=== PATIENT | female | born 1955 | race Caucasian/White ===

== ENCOUNTER 2021-07-31 21:23 | Inpatient (IN) | payer OTHER ==
[~2021-07-31] VITALS: Ht 175.3 cm; Wt 80.7 kg
[2021-07-31] MEDS ORDERED: HALOPERIDOL LACTATE 5 MG/ML INJ VIAL IM ONE (22:00)
[2021-07-31] MEDS ORDERED: SODIUM CHLORIDE 0.9% 2,000 ML IV ONE (22:30)
[2021-07-31 23:28] LABS: Basophils # (auto) 0.1 10 ^3/uL (0-0.2); Basophils % (auto) 0.5 % (0.0-2.0); Eosinophils # (auto) 0 10 ^3/uL (0-0.8); Eosinophils % (auto) 0.1 % (0.0-7.0); Hemoglobin 14.2 g/dL (12.2-16.2); Lymphocytes # (auto) 1.9 10 ^3/uL (0.4-5.4); Lymphocytes % (auto) 9.9 % (10.0-50.0); Mean Corpuscular Hemoglobin 29.5 pg (28.0-32.0); Mean Corpuscular Hgb Conc. 33.1 g/dL (32.0-36.0); Mean Corpuscular Volume 89.2 fL (80.0-100.0); Monocytes # (auto) 0.9 10 ^3/uL (0-1.3); Monocytes % (auto) 4.6 % (0.0-12.0); Neutrophils # (auto) 16.1 10 ^3/uL (1.6-8.6); Neutrophils % (auto) 84.9 % (37.0-80.0); Red Blood Cells 4.83 10^6/uL (4.0-5.20)
[2021-07-31 23:49] LABS: Albumin 3.3 g/dL (3.4-5.0); Calcium 9.1 mg/dL (8.5-10.1); INR 1.13 (0.9-1.15); Magnesium 2.8 mg/dL (1.6-2.6); Partial Thromboplastin Time 25.5 sec (23.6-33.0); Potassium 3.8 mmol/L (3.5-5.1)
[2021-07-31 23:51] LABS: Lactic Acid w/Reflex 2.2 mmol/L (0.4-2.0)
[2021-08-01 00:01] LABS: BUN/Creatinine Ratio 31.6; Bilirubin, Total 0.7 mg/dL (0.2-1.0); Total Protein 7.2 g/dL (6.4-8.2)
[2021-08-01 01:16] LABS: Urine Bacteria NONE SEEN /hpf (None Seen); Urine Blood Negative /uL (Negative); Urine Mucus FEW (None Seen); Urine WBC 2 /hpf (0 - 5)
[2021-08-01 01:32] LABS: Amphetamine Screen, Urine NEGATIVE (NEGATIVE); Barbiturate Scree,Urine NEGATIVE (NEGATIVE); Benzodiazephine Screen, Urine NEGATIVE (NEGATIVE); Cannabinoid Screen, Urine NEGATIVE (NEGATIVE); Cocaine Screen, Urine NEGATIVE (NEGATIVE); Opiate Scree,Urine NEGATIVE (NEGATIVE); Phencyclidine Screen, Urine NEGATIVE (NEGATIVE)
[2021-08-01] MEDS ORDERED: NITROGLYCERIN 0.4 MG SL TAB SL PRN (03:00)
[2021-08-01] MEDS ORDERED: ONDANSETRON HCL 4 MG/2 ML VIAL IV PRN (03:00)
[2021-08-01] MEDS ORDERED: MORPHINE SULFATE INJECTION 2 MG/ML SYRG IV PRN (03:00)
[2021-08-01] MEDS ORDERED: SOD CHL 0.45% 1,000 ML IV SCH (03:00)
[2021-08-01] MEDS ORDERED: ACETAMINOPHEN 325 MG TAB PO PRN (03:00)
[2021-08-01] MEDS ORDERED: cefTRIAXone 1GM/50ML D5W 50 ML IV ONE (03:00)
[2021-08-01 04:52] LABS: Calcium 8.9 mg/dL (8.5-10.1); Potassium 3.7 mmol/L (3.5-5.1)
[2021-08-01 04:54] LABS: BUN/Creatinine Ratio 38.6
[2021-08-01] MEDS ORDERED: ENOXAPARIN SOD 100 MG/1 ML SYRINGE SC ONE (06:15)
[2021-08-01] MEDS: SOD CHL 0.45% 1,000 ML IV SCH ×2 (07:03→23:36)
[2021-08-01] MEDS: risperiDONE 1 MG TAB PO SCH (10:00)
[2021-08-01] MEDS: ASPirin 81 mg TAB PO SCH (10:00)
[2021-08-01] MEDS ORDERED: PANTOPRAZOLE 40 MG TAB PO SCH (10:00)
[2021-08-01 13:00] VITALS: BP 115/80
[2021-08-01 17:10] VITALS: BP 95/76
[2021-08-01 20:00] VITALS: BP 101/74
[2021-08-01 22:00] VITALS: BP 101/74
[2021-08-01] MEDS: MIRTAZAPINE 30 MG TAB PO SCH (22:00)
[2021-08-02 05:27] VITALS: BP 110/79
[2021-08-02 06:10] LABS: Basophils # (auto) 0.1 10 ^3/uL (0-0.2); Basophils % (auto) 0.6 % (0.0-2.0); Eosinophils # (auto) 0.1 10 ^3/uL (0-0.8); Eosinophils % (auto) 0.6 % (0.0-7.0); Hematocrit 36.4 % (36.0-46.0); Hemoglobin 12.1 g/dL (12.2-16.2); Lymphocytes # (auto) 2.5 10 ^3/uL (0.4-5.4); Lymphocytes % (auto) 25.8 % (10.0-50.0); Mean Corpuscular Hemoglobin 30.1 pg (28.0-32.0); Mean Corpuscular Hgb Conc. 33.2 g/dL (32.0-36.0); Mean Corpuscular Volume 90.7 fL (80.0-100.0); Monocytes # (auto) 0.6 10 ^3/uL (0-1.3); Monocytes % (auto) 6.6 % (0.0-12.0); Neutrophils # (auto) 6.4 10 ^3/uL (1.6-8.6); Neutrophils % (auto) 66.4 % (37.0-80.0); Red Blood Cells 4.01 10^6/uL (4.0-5.20); White Blood Cell 9.7 10^3/uL (4.4-10.8)
[2021-08-02 06:18] LABS: Calcium 8.6 mg/dL (8.5-10.1); Potassium 3.7 mmol/L (3.5-5.1)
[2021-08-02 06:20] LABS: BUN/Creatinine Ratio 41.5
[2021-08-02] MEDS: cefTRIAXone 1GM/50ML D5W 50 ML IV SCH (08:22)
[2021-08-02] MEDS: D5W/SOD CHL 0.45% 1,000 ML IV SCH ×2 (08:30→21:50)
[2021-08-02 09:23] VITALS: BP 106/74
[2021-08-02] MEDS: ASPirin 81 mg TAB PO SCH (10:02)
[2021-08-02] MEDS: ENOXAPARIN SOD 40 MG/0.4 ML SYRINGE SC SCH (10:02)
[2021-08-02] MEDS: risperiDONE 1 MG TAB PO SCH (10:02)
[2021-08-02 13:00] VITALS: BP 109/72
[2021-08-02] MEDS ORDERED: HYDROcodone-ACET 5/325MG TAB PO PRN (15:00)
[2021-08-02 16:54] VITALS: BP 110/66
[2021-08-02] MEDS ORDERED: LEVE100S4 PO (19:05)
[2021-08-02 20:00] VITALS: BP 163/110
[2021-08-02 21:44] VITALS: BP 163/110
[2021-08-02] MEDS: MIRTAZAPINE 30 MG TAB PO SCH (22:02)
[2021-08-03] VITALS (7 sets, daily range): BP systolic 86–159; BP diastolic 58–114
[2021-08-03] MEDS: D5W/SOD CHL 0.45% 1,000 ML IV SCH ×3 (00:30→17:07)
[2021-08-03] MEDS: ASPirin 81 mg TAB PO SCH (09:04)
[2021-08-03] MEDS: risperiDONE 1 MG TAB PO SCH (09:04)
[2021-08-03] MEDS: ENOXAPARIN SOD 40 MG/0.4 ML SYRINGE SC SCH (09:05)
[2021-08-03 09:21] LABS: Basophils # (auto) 0.1 10 ^3/uL (0-0.2); Basophils % (auto) 0.3 % (0.0-2.0); Eosinophils # (auto) 0.3 10 ^3/uL (0-0.8); Hematocrit 43.9 % (36.0-46.0); Hemoglobin 14.7 g/dL (12.2-16.2); Lymphocytes # (auto) 2.6 10 ^3/uL (0.4-5.4); Mean Corpuscular Hemoglobin 30.3 pg (28.0-32.0); Mean Corpuscular Hgb Conc. 33.5 g/dL (32.0-36.0); Mean Corpuscular Volume 90.3 fL (80.0-100.0); Monocytes % (auto) 5.8 % (0.0-12.0); Neutrophils # (auto) 12.4 10 ^3/uL (1.6-8.6); Neutrophils % (auto) 75.9 % (37.0-80.0); Nucleated Red Blood Cells % 0.1 %; Red Blood Cells 4.86 10^6/uL (4.0-5.20); Red Cell Distribution Width 14.9 % (11.8-14.3); White Blood Cell 16.3 10^3/uL (4.4-10.8)
[2021-08-03 09:54] LABS: Calcium 8.7 mg/dL (8.5-10.1); Potassium 3.3 mmol/L (3.5-5.1)
[2021-08-03 10:00] LABS: BUN/Creatinine Ratio 20.9; Bilirubin, Total 0.6 mg/dL (0.2-1.0); Total Protein 6.7 g/dL (6.4-8.2)
[2021-08-03] MEDS: cefTRIAXone 1GM/50ML D5W 50 ML IV SCH (10:34)
[2021-08-03] MEDS ORDERED: POTASSIUM EFFERVESENT TAB 25 MEQ GT ONE (15:00)
[2021-08-03] MEDS: CARVEDILOL 3.125 MG TAB PO SCH (23:28)
[2021-08-03] MEDS: SACUBITRIL-VALSARTAN 24mg/26mg TAB PO SCH (23:29)
[2021-08-03] MEDS: MIRTAZAPINE 30 MG TAB PO SCH (23:29)
[2021-08-04] MEDS: D5W/SOD CHL 0.45% 1,000 ML IV SCH ×5 (00:30→20:33)
[2021-08-04 05:00] VITALS: BP 103/75
[2021-08-04 07:49] LABS: Basophils # (auto) 0.1 10 ^3/uL (0-0.2); Basophils % (auto) 0.7 % (0.0-2.0); Eosinophils # (auto) 0.6 10 ^3/uL (0-0.8); Hematocrit 39.6 % (36.0-46.0); Hemoglobin 13.2 g/dL (12.2-16.2); Lymphocytes # (auto) 2.9 10 ^3/uL (0.4-5.4); Lymphocytes % (auto) 22.4 % (10.0-50.0); Mean Corpuscular Hemoglobin 30.1 pg (28.0-32.0); Mean Corpuscular Hgb Conc. 33.4 g/dL (32.0-36.0); Monocytes # (auto) 0.9 10 ^3/uL (0-1.3); Monocytes % (auto) 6.9 % (0.0-12.0); Neutrophils # (auto) 8.3 10 ^3/uL (1.6-8.6); White Blood Cell 12.8 10^3/uL (4.4-10.8)
[2021-08-04] MEDS: ASPirin 81 mg TAB PO SCH (08:58)
[2021-08-04] MEDS: SACUBITRIL-VALSARTAN 24mg/26mg TAB PO SCH ×2 (08:59→23:42)
[2021-08-04] MEDS: risperiDONE 1 MG TAB PO SCH (08:59)
[2021-08-04] MEDS: CARVEDILOL 3.125 MG TAB PO SCH ×2 (08:59→22:00)
[2021-08-04 09:00] VITALS: BP 112/80
[2021-08-04] MEDS: ENOXAPARIN SOD 40 MG/0.4 ML SYRINGE SC SCH (09:00)
[2021-08-04 13:00] VITALS: BP 101/73
[2021-08-04] MEDS ORDERED: HALOPERIDOL LACTATE 5 MG/ML INJ VIAL IM PRN (15:30)
[2021-08-04 16:17] LABS: Folate (Folic Acid) 4.96 ng/mL (5.38-24)
[2021-08-04 16:55] VITALS: BP 92/67
[2021-08-04 20:00] VITALS: BP 96/70
[2021-08-04 22:00] VITALS: BP 96/70
[2021-08-04] MEDS: MIRTAZAPINE 30 MG TAB PO SCH (23:42)
[2021-08-05 05:00] VITALS: BP 106/72
[2021-08-05] MEDS: D5W/SOD CHL 0.45% 1,000 ML IV SCH ×4 (06:08→23:30)
[2021-08-05] MEDS ORDERED: clonazePAM 0.5 MG TAB PO PRN (08:45)
[2021-08-05 09:00] VITALS: BP 117/78
[2021-08-05] MEDS: SACUBITRIL-VALSARTAN 24mg/26mg TAB PO SCH ×2 (10:18→21:41)
[2021-08-05] MEDS: CARVEDILOL 3.125 MG TAB PO SCH ×2 (10:18→21:42)
[2021-08-05] MEDS: ASPirin 81 mg TAB PO SCH (10:18)
[2021-08-05] MEDS: ENOXAPARIN SOD 40 MG/0.4 ML SYRINGE SC SCH (10:19)
[2021-08-05] MEDS: risperiDONE 1 MG TAB PO SCH ×2 (10:19→21:42)
[2021-08-05 13:00] VITALS: BP 106/78
[2021-08-05 17:17] VITALS: BP 112/78
[2021-08-05] MEDS: MIRTAZAPINE 30 MG TAB PO SCH (21:42)
[2021-08-05 22:00] VITALS: BP 94/60
[2021-08-06 05:00] VITALS: BP 82/50
[2021-08-06 08:30] VITALS: BP 97/69
[2021-08-06] MEDS: D5W/SOD CHL 0.45% 1,000 ML IV SCH ×3 (08:33→19:10)
[2021-08-06] MEDS: CARVEDILOL 3.125 MG TAB PO SCH ×2 (09:23→21:56)
[2021-08-06] MEDS: SACUBITRIL-VALSARTAN 24mg/26mg TAB PO SCH ×3 (09:24→21:55)
[2021-08-06] MEDS: ASPirin 81 mg TAB PO SCH (09:38)
[2021-08-06] MEDS: ENOXAPARIN SOD 40 MG/0.4 ML SYRINGE SC SCH (09:38)
[2021-08-06] MEDS: risperiDONE 1 MG TAB PO SCH ×2 (09:38→21:44)
[2021-08-06 13:15] VITALS: BP 105/72
[2021-08-06 16:49] VITALS: BP 134/72
[2021-08-06] MEDS: MIRTAZAPINE 30 MG TAB PO SCH (21:44)
[2021-08-06 22:00] VITALS: BP 125/110
[2021-08-07] MEDS: D5W/SOD CHL 0.45% 1,000 ML IV SCH ×4 (01:50→21:50)
[2021-08-07 05:00] VITALS: BP 126/83
[2021-08-07 09:00] VITALS: BP 97/69
[2021-08-07] MEDS: ASPirin 81 mg TAB PO SCH (10:32)
[2021-08-07] MEDS: risperiDONE 1 MG TAB PO SCH ×2 (10:33→22:05)
[2021-08-07] MEDS: ENOXAPARIN SOD 40 MG/0.4 ML SYRINGE SC SCH (10:33)
[2021-08-07] MEDS: SACUBITRIL-VALSARTAN 24mg/26mg TAB PO SCH ×2 (12:00→22:02)
[2021-08-07 13:00] VITALS: BP 111/77
[2021-08-07 17:16] VITALS: BP 94/62
[2021-08-07 22:00] VITALS: BP 104/59
[2021-08-07] MEDS: CARVEDILOL 3.125 MG TAB PO SCH (22:04)
[2021-08-07] MEDS: MIRTAZAPINE 30 MG TAB PO SCH (22:05)
[2021-08-08 05:00] VITALS: BP 99/67
[2021-08-08 09:00] VITALS: BP_SYST 115; BP_SYST 95; BP_DIAS 63; BP_DIAS 67
[2021-08-08] MEDS: SACUBITRIL-VALSARTAN 24mg/26mg TAB PO SCH ×3 (10:00→22:06)
[2021-08-08] MEDS: CARVEDILOL 3.125 MG TAB PO SCH ×2 (10:00→22:05)
[2021-08-08] MEDS: D5W/SOD CHL 0.45% 1,000 ML IV SCH ×2 (11:10→11:22)
[2021-08-08] MEDS: ENOXAPARIN SOD 40 MG/0.4 ML SYRINGE SC SCH (11:17)
[2021-08-08] MEDS: ASPirin 81 mg TAB PO SCH (11:17)
[2021-08-08] MEDS: risperiDONE 1 MG TAB PO SCH ×2 (11:18→22:07)
[2021-08-08 13:00] VITALS: BP 132/84
[2021-08-08 16:39] VITALS: BP 143/76
[2021-08-08 22:00] VITALS: BP 104/73
[2021-08-08] MEDS: MIRTAZAPINE 30 MG TAB PO SCH (22:06)
[2021-08-09 05:00] VITALS: BP 105/75
[2021-08-09] MEDS: D5W/SOD CHL 0.45% 1,000 ML IV SCH ×5 (06:50→14:12)
[2021-08-09 09:00] VITALS: BP 132/73
[2021-08-09] MEDS: ASPirin 81 mg TAB PO SCH (09:42)
[2021-08-09] MEDS: risperiDONE 1 MG TAB PO SCH (09:42)
[2021-08-09] MEDS: SACUBITRIL-VALSARTAN 24mg/26mg TAB PO SCH (09:43)
[2021-08-09] MEDS: ENOXAPARIN SOD 40 MG/0.4 ML SYRINGE SC SCH (09:43)
[2021-08-09] MEDS: CARVEDILOL 3.125 MG TAB PO SCH (09:43)
[2021-08-09 12:46] VITALS: BP 125/70
[2021-08-09 16:29] VITALS: BP 130/75
[2021-08-09 17:00] VITALS: BP 94/53
[2021-08-09] MEDS ORDERED: Ensure HIGH Protein Chocolate 8oz Bottle PO SCH (18:00)
== END 2021-08-09 19:32 | disposition hospice, home (50) | DRG 871 ==
LOC: EDBD 21:23 → ER 21:32 → TELE 08-01 02:52 → TELE-CENTR 08-01 09:32 → CENTRAL 08-02 13:47 → TELE-CENTR 08-03 17:06
PROVIDERS: ADMIT Nurse Practitioner; ATTEND Family Medicine
DX: A41.9 Sepsis, unspecified organism (principal); G93.41 Metabolic encephalopathy; I21.A1 Myocardial infarction type 2; E87.0 Hyperosmolality and hypernatremia; R45.851 Suicidal ideations; F03.91 Unspecified dementia, unspecified severity, with behavioral disturbance; Z68.1 Body mass index [BMI] 19.9 or less, adult; I10 Essential (primary) hypertension; R13.10 Dysphagia, unspecified; G40.909 Epilepsy, unspecified, not intractable, without status epilepticus; E86.0 Dehydration; Z20.822 Contact with and (suspected) exposure to COVID-19; F32.A Depression, unspecified; R62.7 Adult failure to thrive; Z79.899 Other long term (current) drug therapy
CPT/HCPCS: 36415; 36600; 70450; 71045; 80048; 80053; 80307; 81001; 82607; 82746; 82805; 83605; 83735; 83880; 84443; 84484; 85025; 85610; 85730; 87040; 87086; 87426; 92610; 93005; 93306; 95819; 96361; 96365; 96372; G0378; J0696; J2405

== ENCOUNTER 2023-08-29 23:42 | Emergency (ER) | payer OTHER ==
[~2023-08-29] VITALS: Ht 162.6 cm; Wt 40.9 kg
[~2023-08-29 23:42] MED LIST: LEVE100S4 PO
[2023-08-30] MEDS ORDERED: MORPHINE SULFATE 4 MG/ML SYR/VIAL IV ONE (04:45)
[2023-08-30 05:00] VITALS: PULSE 85; RESP 18; O2SAT 96
[2023-08-30 05:33] LABS: Basophils # (auto) 0.2 10 ^3/uL (0-0.2); Basophils % (auto) 1.1 % (0.0-2.0); Eosinophils # (auto) 0.1 10 ^3/uL (0-0.8); Eosinophils % (auto) 0.6 % (0.0-7.0); Hematocrit 32.8 % (36.0-46.0); Hemoglobin 10.6 g/dL (12.2-16.2); Lymphocytes # (auto) 2.7 10 ^3/uL (0.4-5.4); Lymphocytes % (auto) 15.9 % (10.0-50.0); Mean Corpuscular Hgb Conc. 32.2 g/dL (32.0-36.0); Mean Corpuscular Volume 99.4 fL (80.0-100.0); Monocytes # (auto) 1.1 10 ^3/uL (0-1.3); Monocytes % (auto) 6.4 % (0.0-12.0); Red Cell Distribution Width 14.6 % (11.8-14.3); White Blood Cell 17.1 10^3/uL (4.4-10.8)
[2023-08-30 05:47] LABS: Albumin 3.6 g/dL (3.2-4.8); Alkaline Phosphatase 386 U/L (46-116); Anion Gap 7 (5-15); Aspartate Aminotransferase 15 U/L (13-40); BUN/Creatinine Ratio 40.7 (10.0-20.0); Blood Urea Nitrogen 22 mg/dL (9-23); Calcium 8.5 mg/dL (8.7-10.4); Carbon Dioxide 26 mmol/L (20-30); Chloride 112 mmol/L (98-107); Glucose 108 mg/dL (74-106); Potassium 3.5 mmol/L (3.5-5.1); Sodium 145 mmol/L (136-145)
[2023-08-30 05:48] LABS: Bilirubin, Total 1.4 mg/dL (0.2-1.0); Total Protein 5.9 g/dL (5.7-8.2)
[2023-08-30 06:02] LABS: Alanine Aminotransferase 9 U/L (7-40)
[2023-08-30 08:00] VITALS: PULSE 81; RESP 16; O2SAT 97
[2023-08-30] MEDS ORDERED: ONDANSETRON HCL 4 MG/2 ML VIAL IV ONE (09:15)
[2023-08-30] MEDS ORDERED: MORPHINE SULFATE INJ 2 MG/ml SYRG IV ONE (09:15)
[2023-08-30] MEDS ORDERED: SODIUM CHLORIDE 0.9% 1,000 ML IV ONE (11:30)
[2023-08-30 11:57] LABS: Urine Bacteria FEW /hpf (None Seen); Urine Blood TRACE /uL (Negative); Urine Budding Yeast MODERATE /hpf (None Seen); Urine Clarity HAZY (Clear); Urine Color Yellow (Yellow); Urine Mucus FEW (None Seen); Urine Protein, UAD TRACE (Negative); Urine Specific Gravity 1.029 (1.001-1.035); Urine WBC 26 /hpf (0 - 5)
[2023-08-30 12:25] VITALS: BP 104/70; PULSE 80; RESP 20; TEMP 97.9; O2SAT 96
== END 2023-08-30 12:59 | disposition short-term general hospital (02) ==
LOC: ER 23:42
DX: S72.002A Fracture of unspecified part of neck of left femur, initial encounter for closed fracture (principal); W05.0XXA Fall from non-moving wheelchair, initial encounter; Y93.89 Activity, other specified; Y92.89 Other specified places as the place of occurrence of the external cause; Y99.8 Other external cause status
CPT/HCPCS: 36415; 73502; 80053; 81001; 85025; 96361; 96374; 96375; 96376; 99285; J2270; J2405; J7030